=== PATIENT | female | born 1965 | race Caucasian/White ===

== ENCOUNTER → 2017-10-26 | Outpatient (CLI) | payer OTHER ==
[~2017-10-26] MED LIST: BACTRIM DS TAB1 EACH PO; CARISOPRODOL 3350 MG PO; CELEXA10 MG; CELEXA10 MG PO; CYMBALTA60 MG PO; DIFLUCAN150 M1 PO; FENTANYL1 EACH TD; HRT TD; HYDROCODONE-AP1 EAC6 PO; LEVOTHYROXIN0.112 M1 PO; LEVOTHYROXIN0.125 M1 PO; MEDROLDOSEPACK PO; MIMVEY 1-0.5 M1 EACH PO; NORCO 5-325 TA1 EACH PO; POTASSIUM20 PO; PROTONIX40 M1 PO; TRAMADOL 50 MG50 MG PO
== END ==
LOC: M.CT 07:57
DX: J98.4 Other disorders of lung (principal); R63.4 Abnormal weight loss